=== PATIENT | female | born 1980 | race Caucasian/White ===

== ENCOUNTER → 2020-03-30 | Outpatient (CLI) | payer BC | LOC: KOH-I 15:19 | DX: M79.672 Pain in left foot (principal) | CPT/HCPCS: 73630 ==

== ENCOUNTER → 2020-04-28 | Outpatient (CLI) | payer BC | LOC: EXRD 13:18 | DX: I73.89 Other specified peripheral vascular diseases (principal); I70.203 Unspecified atherosclerosis of native arteries of extremities, bilateral legs | CPT/HCPCS: 93925 ==

== ENCOUNTER → 2021-07-27 | Outpatient (CLI) | payer BC | LOC: KOH-I 11:17 | DX: R06.02 Shortness of breath (principal) | CPT/HCPCS: 71046 ==